=== PATIENT | female | born 1980 | race Caucasian/White ===

== ENCOUNTER 2016-05-22 23:15 | Inpatient (IN) | payer OTHER ==
[~2016-05-22] VITALS: Ht 165.1 cm; Wt 98.0 kg
[~2016-05-22 23:15] MED LIST: ALBUTEROL0.09 MG/A3 IH; FLEXERIL10 MG PO; NORCO 10/325 MG1 TAB PO; NORCO 5/325 MG1 TAB PO; PRILOSEC40 MG PO; REGLAN10 MG PO; ULTRAM50 MG PO; ZOFRAN4 M1 PO
[2016-05-22 23:26] VITALS: BP 107/67
--- NOTE | 2016-05-23 00:19 | NUR ---
PT TAKEN TO BED 1
--- NOTE | 2016-05-23 00:53 | NUR ---
Dr. Rene evaluating patient at bedside.
[2016-05-23] MEDS ORDERED: KETOROLAC 30 MG/ML VIAL IM ONE (01:00)
[2016-05-23] MEDS ORDERED: HYDROcodone/APAP 5/325 MG 1 TAB TAB PO ONE (01:00)
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
[2016-05-23] MEDS ORDERED: ENOXAPARIN 100 MG/ML SYR SUBQ ONE (03:45)
[2016-05-23] MEDS ORDERED: ONDANSETRON 4 MG/2 ML VIAL IVP PRN (04:00)
[2016-05-23] MEDS ORDERED: ACETAMINOPHEN 325 MG TAB PO PRN (04:00)
[2016-05-23] MEDS ORDERED: MORPHINE SULFATE 4 MG/ML SYR IVP PRN (04:00)
[2016-05-23] MEDS ORDERED: MORPHINE SULFATE 2 MG/ML SYR IVP PRN (04:00)
--- NOTE | 2016-05-23 05:42 | NUR ---
Patient will be admitted to care of DR BRYSON. Admited to TELEMETRY. Will go to room 105B. Belongings list completed. Report to KASSIDY DAHL.
[2016-05-23 06:05] VITALS: BP 102/60
--- NOTE | 2016-05-23 06:15 | NUR ---
ADMITTED 35 Y/O FEMALE TO MED/SURG FROM ER AT 0600 AM VIA WHEELCHAIR WITH DX: DVT. PATIENT AAO X 4, ABLE TO FOLLOW COMMAND AND MAKE NEEDS KNOWN AND AMBULATORY BY SELF WITH STEADY GAIT. NO S/S OF DISTRESS OR SOB NOTED UPON ADMISSION. SKIN WARM DRY TO TOUCH WITH NORMAL COLOR AND INTACT. NOTED LT ARM DELTOID WITH TENDERNESS AND BUMP, BUT WITHOUT REDNESS. TOLD PATIENT TO AVOID MASSAGE THE AREA. INSTRUCTED PATIENT TO UNIT/ENVIRONMENT. ALSO, DISCUSSED PLAN OF CARE, PAIN MANAGEMENT AND MEDICATION REGIMEN WITH PATIENT AND PATIENT VERBALIZED UNDERSTANDING. PLACED PATIENT ON SAFETY PRECAUTIONS AND WILL CONTINUE TO MONITOR. CALL LIGHT LEFT WITHIN REACH.
--- NOTE | 2016-05-23 07:15 | NUR ---
ENDORSED PLAN OF CARE TO NABILA RUEDA, AT BEDSIDE. PATIENT REMAINED IN STABLE CONDITION WITHOUT APPARENT DISTRESS NOTED.
--- NOTE | 2016-05-23 07:30 | NUR ---
RECEIVED REPORT FROM THE TRAFFIC SUPERVISOR NURSE LUIS AT BEDSIDE FOR CONTINUITY OF CARE. PATIENT IS AWAKE, ALERT, AND ORIENTEDX4. IV ON THE RIGHT HAND INTACT AND PATENT. INITIAL ASSESSMENT DONE. TENDERNESS AND SWELLING NOTED ON THE LEFT UPPER ARM OTHER MILLER SKIN INTACT. ON ROOM AIR NO S/S OF SOB OR OTHER DISTRESS. VITAL TAKEN AND WITHIN THE NORMAL LIMIT. SAFETY CHECKED DONE AND WILL CONTINUE TO MONITOR. CALL LIGHT WITHIN REACH.
[2016-05-23 08:00] VITALS: BP 105/65
--- NOTE | 2016-05-23 08:30 | NUR ---
PATIENT HAS BEEN SCREENED AND CATEGORIZED MODERATE NUTRITION RISK. PATIENT WILL BE SEEN WITHIN 3-5 DAYS OF ADMISSION. 05/25/16-05/27/[address]
[2016-05-23] MEDS ORDERED: WARFARIN 5 MG TAB PO SCH (09:00)
--- NOTE | 2016-05-23 09:00 | NUR ---
IV FLUID STARTED INFUSING. DUE MED GIVE. PATIENT TOLERATED WELL.
[2016-05-23] MEDS: NACL 0.9% 1,000 ML IV SCH ×3 (09:28→23:58)
[2016-05-23] MEDS: APIXABAN 2.5 MG TAB PO SCH ×2 (09:31→20:47)
--- NOTE | 2016-05-23 10:00 | NUR ---
PATIENT IS SLEEPING IN BED, NO S/S OF DISTRESS. CALL LIGHT WITHIN REACH.
--- NOTE | 2016-05-23 10:33 | NUR ---
CM NOTE INITIAL REVIEW FAXED TO [facility] (FAX# [phone]) & [facility] (FAX# [phone], C: [phone]) Addendum: 05/23/16 at 1245 by Enzo De La Cruz RN ATTN: [id number] [id number]
--- NOTE | 2016-05-23 12:00 | NUR ---
PATIENT IS AWAKE, NO COMPLAINED OF ANY PAIN. WILL CONTINUE TO MONITOR.
--- NOTE | 2016-05-23 13:00 | NUR ---
PATIENT EATING LUNCH. NO COMPLAINED OF PAIN OR S/S OF DISTRESS. CALL LIGHT WITHIN REACH.
[2016-05-23 16:00] VITALS: BP 113/63
--- NOTE | 2016-05-23 16:44 | NUR ---
VITALS TAKEN AND WITHIN THE NORMAL LIMIT. COMPLAINED OF PAIN ON THE LEFT UPPER ARM. MEDICATION WILL BE PROVIDED. WILL CONTINUE TO MONITOR. CALL LIGHT WITHIN REACH.
--- NOTE | 2016-05-23 18:23 | NUR ---
PATIENT EATING DINNER. STATE PAIN MEDICATION HELP REDUCED THE PAIN ON HER LEFT ARM. WILL CONTINUE TO MONITOR. CALL LIGHT WITHIN REACH.
--- NOTE | 2016-05-23 19:15 | NUR ---
RECEIVED REPORT FROM NABILA VALLE. INITIAL ASSESSMENT COMPLETED. PT AAOX4. PT HAS IV TO RIGHT HAND 22G; ASYMPTOMATIC, PATENT AND INTACT. PT HAS LEFT ARM TENDERNESS AND SWELLING. PT HAS A BRUISE ON RIGHT SIDE OF ABDOMEN DUE TO LOVENOX SHOT. EXPLAINED PLAN OF CARE TO PT AND ORIENTED HER TO ROOM AND SURROUNDINGS. FAMILY AT BEDSIDE. SAFETY MEASURES IN PLACE, WILL CONTINUE TO MONITOR PT.
--- NOTE | 2016-05-23 19:30 | NUR ---
REPORT GIVEN TO TRACK SUBWAY REPAIR SUPERVISOR NURSE KAJAL AT BEDSIDE FOR CONTINUITY OF CARE. PATIENT ON STABLE CONDITION AND ALL NEEDS ARE MET AT THIS TIME.
--- NOTE | 2016-05-23 20:50 | NUR ---
PT TLERATED 2100 MED WELL, CALL LIGHT WITHIN REACH.
--- NOTE | 2016-05-23 23:15 | NUR ---
PT WATCHING TV, DENIES PAIN. WILL CONTINUE TO MONITOR PT.
[2016-05-24] VITALS: BP 115/68
--- NOTE | 2016-05-24 00:24 | NUR ---
CHECKED PT'S VS. VS STABLE, PT DENIES PAIN AT THIS TIME. WILL CONTINUE TO MONITOR PT.
--- NOTE | 2016-05-24 02:22 | NUR ---
PT SLEEPING AT THIS TIME, NO SIGNS OF DISTRESS NOTED. WILL CONTINUE TO MONITOR PT.
[2016-05-24] MEDS: NACL 0.9% 1,000 ML IV SCH (04:36)
--- NOTE | 2016-05-24 04:39 | NUR ---
PT SLEEPING AT THIS TIME. NO SIGNS OF DISCOMFORT/DISTRESS NOTED. WILL CONTINUE TO MONITOR PT.
--- NOTE | 2016-05-24 05:09 | NUR ---
MACHINE FARMWORKER AT BEDSIDE, DRAWING MORNING LABS. CALL LIGHT WITHIN REACH.
--- NOTE | 2016-05-24 07:10 | NUR ---
ENDORSED PT IN STABLE CONDITION TO NABILA FARAH FOR CONTINUITY OF CARE.
--- NOTE | 2016-05-24 07:20 | NUR ---
RECEIVED REPORT FROM THE PLASTER BLOCK LAYER NURSE KAJAL AT BEDSIDE FOR CONTINUITY OF CARE. PATIENT IS AWAKE, ALERT, AND ORIENTEDX4. IV ON THE RIGHT HAND INTACT AND PATENT. INITIAL ASSESSMENT DONE. TENDERNESS AND SWELLING NOTED ON THE LEFT UPPER ARM OTHER MILLER SKIN INTACT. ON ROOM AIR NO S/S OF SOB OR OTHER DISTRESS. VITAL TAKEN AND WITHIN THE NORMAL LIMIT. SAFETY CHECKED DONE AND WILL CONTINUE TO MONITOR. CALL LIGHT WITHIN REACH.
[2016-05-24] MEDS ORDERED: ELIQUIS2.5 MG PO (07:45)
[2016-05-24 07:53] VITALS: BP 112/73
[2016-05-24] MEDS: APIXABAN 2.5 MG TAB PO SCH (08:40)
--- NOTE | 2016-05-24 09:00 | NUR ---
DUE MEDS GIVE, PATIENT TOLERATED WELL. NO COMPLAINED OF PAIN OR DISTRESS. WILL CONTINUE TO MONITOR. CALL LIGHT WITHIN REACH.
[2016-05-24] MEDS ORDERED: CLINICAL MONITORING MC PRN (10:10)
[2016-05-24 10:41] VITALS: BP 112/73
--- NOTE | 2016-05-24 10:45 | NUR ---
FAXED CONCURRENT REVIEW TO [facility] [phone] PHONE September FAXED CONCURRENT REVIEW TO [facility] [phone] PHONE [phone] FAXED THE SIGNED PRESCRIPTION DRUG PRIOR AUTHORIZATION REQUEST FORM TO [facility]. FAX [phone]. I CALLED THE [facility] AND SPOKE WITH EDWARD. I TOLD HER THE PATIENT HAD THROMBOSIS OF THE CEPHALIC VEIN. SHE SAID FOR THAT DIAGNOSIS, NO PRIOR AUTHORIZATION NEEDED. PHONE [phone] I DID FAXED TO [facility]M .
--- NOTE | 2016-05-24 11:30 | NUR ---
EDUCATION GIVEN TO PATIENT ABOUT DISCHARGED INSTRUCTION, FOLLOW UP APPOINTMENT, AND PRESCRIPTIONS. PATIENT VERBALIZED UNDERSTANDING. PATIENT SIGNED ALL DISCHARGED PAPERS AND GIVEN A COPY. REMOVED IV AND END INTACT. PATIENT REFUSED PNEUMONIA VACCINE. PATIENT STATED ALREADY RECEIVED FLU VACCINE AT 2016. PATIENT WILL BE DISCHARGED TO HOME WITH FAMILY IN STABLE CONDITION.
--- NOTE | 2016-05-24 12:20 | NUR ---
ASSISTED PATIENT TO THE LOBBY WITH FAMILY IN STABLE CONDITION. DISCHARGED TO HOME.
== END 2016-05-24 12:20 | disposition home or self-care (01) | DRG 197 ==
LOC: MED 23:15 → MTU 05-23 04:04
PROVIDERS: ADMIT Hospitalist; ATTEND Hospitalist
DX: I82.612 Acute embolism and thrombosis of superficial veins of left upper extremity (principal); K74.60 Unspecified cirrhosis of liver; F17.210 Nicotine dependence, cigarettes, uncomplicated; J45.909 Unspecified asthma, uncomplicated; K21.9 Gastro-esophageal reflux disease without esophagitis; B19.20 Unspecified viral hepatitis C without hepatic coma; Z90.49 Acquired absence of other specified parts of digestive tract; Z98.890 Other specified postprocedural states; Z90.710 Acquired absence of both cervix and uterus

== ENCOUNTER 2016-07-14 19:53 | Emergency (ER) | payer OTHER ==
[~2016-07-14] VITALS: Ht 165.1 cm; Wt 99.8 kg
[~2016-07-14 19:53] MED LIST changes: +ELIQUIS2.5 MG PO
[2016-07-14 20:09] VITALS: BP 114/65
--- NOTE | 2016-07-14 20:34 | NUR ---
Patient to OF.
--- NOTE | 2016-07-14 20:48 | NUR ---
LEFT ARM PAIN, SWELLING, WARMTH TO TOUCH, STARTED TODAY . A MONTH AGO DX OF BLOOD CLOT ON HER LEFT ARM. PAIN SCALE 8/10. ERMD MADE AWARE.
--- NOTE | 2016-07-14 20:49 | NUR ---
Dr. Cook evaluating patient.
[2016-07-14 21:43] VITALS: BP 123/70
--- NOTE | 2016-07-14 21:43 | NUR ---
Patient discharged with v/s stable. Written and verbal after care instructions given and explained. Patient alert, oriented and verbalized understanding of instructions. Ambulatory with steady gait. All questions addressed prior to discharge. ID band removed. Patient advised to follow up with PMD. Rx of KEFLEX 500MG CAPSULE 1 CAP 3 TIMES A DAY BY MOUTH X 10 DAYS given. Patient educated on indication of medication including possible reaction and side effects. Opportunity to ask questions provided and answered.
== END 2016-07-14 21:43 | disposition home or self-care (01) ==
LOC: MED 19:53
DX: L03.114 Cellulitis of left upper limb (principal); J45.909 Unspecified asthma, uncomplicated; K21.9 Gastro-esophageal reflux disease without esophagitis; Z90.710 Acquired absence of both cervix and uterus; Z90.89 Acquired absence of other organs; Z79.899 Other long term (current) drug therapy

== ENCOUNTER 2017-10-06 16:28 | Emergency (ER) | payer OTHER ==
[~2017-10-06] VITALS: Ht 165.1 cm; Wt 93.9 kg
[~2017-10-06 16:28] MED LIST changes: +ACET-787 PO; +ALBU0.0967 IH; -ALBUTEROL0.09 MG/A3 IH; +APIX2.5 PO; +CYCL-405 PO; -ELIQUIS2.5 MG PO; -FLEXERIL10 MG PO; +METO-460 PO; -NORCO 10/325 MG1 TAB PO; -NORCO 5/325 MG1 TAB PO; +OMEP40EC1 PO; +ONDA4TAB PO; -PRILOSEC40 MG PO; -REGLAN10 MG PO; +TRAM50TA1 PO; -ULTRAM50 MG PO; -ZOFRAN4 M1 PO
[2017-10-06 16:58] VITALS: BP 108/67
--- NOTE | 2017-10-06 17:03 | NUR ---
patient to lobby with steady gait awaiting available room. patient to provided urine sample for ua.
--- NOTE | 2017-10-06 17:36 | NUR ---
PT AMBULATES TO BED 4
--- NOTE | 2017-10-06 17:50 | NUR ---
37 yo f bib self with c/o right upper/mid abdomen radiating to right flank x 2 weeks with diarrhea. Patient denies any n/v, fevers, or urinary complaints. pt aaox4. gcs 15. cms intact. rr even and unlabored. lungs clear. abd soft, non-tender. er md nolasco notified. pt needs met. safety precautions in place. will continue to monitor.
[2017-10-06] MEDS ORDERED: KETOROLAC 60 MG/2 ML VIAL IM ONE (18:05)
[2017-10-06] MEDS ORDERED: cefTRIAXone 1,000 MG in LIDOCAINE 1% ***ER ONLY *** 2.1 ML IM ONE (18:05)
[2017-10-06] MEDS ORDERED: MORPHINE SULFATE 2 MG/ML SYR IM ONE (18:05)
[2017-10-06] MEDS ORDERED: cefTRIAXone 1,000 MG VIAL ONE (18:19)
[2017-10-06] MEDS ORDERED: LIDOCAINE MPF 1% - **ER/OR** 5 ML ONE (18:20)
--- NOTE | 2017-10-06 18:49 | NUR ---
[facility] resting [facility] at[facility] w/stable vital signs. safety precautions in place. rr even and unlabored. will continue to monitor.
[2017-10-06 19:15] VITALS: BP 115/81
--- NOTE | 2017-10-06 19:15 | NUR ---
Patient discharged with v/s stable. Written and verbal after care instructions given and explained. Patient alert, oriented and verbalized understanding of instructions. Ambulatory with steady gait. All questions addressed prior to discharge. ID band removed. Patient advised to follow up with PMD. Rx of TORADOL AND LEVAQUIN given. Patient educated on indication of medication including possible reaction and side effects. Opportunity to ask questions provided and answered.
[2017-10-06 19:26] LABS: APPEARANCE,URINE YELLOW (CLEAR)
[2017-10-06 19:27] LABS: BILIRUBIN,URINE NEGATIVE (NEGATIVE); BLOOD, URINE NEGATIVE (NEGATIVE); COLOR,URINE CLEAR (YELLOW); LEUKOCYTE ESTERASE ,URINE NEGATIVE (NEGATIVE); NITRITE, URINE NEGATIVE (NEGATIVE); PH,URINE 5.5 (5.0-9.0); UGLUCOSE NEGATIVE (NEGATIVE)
[2017-10-06 19:37] LABS: BARBITURATE, URINE NEGATIVE ng/ml (NEG <=200); BENZODIAZEPINE, URINE NEGATIVE ng/mL (NEG <=200); CANNABINOID, URINE NEGATIVE ng/mL (NEG <=50); COCAINE, URINE NEGATIVE ng/mL (NEG <=300); OPIATE, URINE NEGATIVE ng/mL (NEG <=2000); PHENCYCLIDINE SCREEN,URINE NEGATIVE ng/mL (NEG <=25)
== END 2017-10-06 19:15 | disposition home or self-care (01) ==
LOC: MED 16:28
DX: G89.29 Other chronic pain (principal); R10.9 Unspecified abdominal pain; M54.9 Dorsalgia, unspecified
CPT/HCPCS: 80305; 81003; 81025; 96372; 99284; J0696; J1885; J2001; J2270; 96374

== ENCOUNTER 2017-10-24 17:30 | Emergency (ER) | payer MEDICAID, OTHER ==
[~2017-10-24] VITALS: Ht 160 cm; Wt 95.3 kg
[2017-10-24 17:40] VITALS: BP 97/65
--- NOTE | 2017-10-24 17:40 | NUR ---
PT BEDSIDE TRIAGED IN ER BED 9. AMBULATED TO BED, REPORT GIVEN TO AMISH DAHL
--- NOTE | 2017-10-24 18:21 | NUR ---
PATIENT PRESENTS TO ED WITH PAIN TO LEFT BICEP X 1 WK--- PER PT SHE FEELS SWELLING TO AREA---NO OBVIOUS EDEMA NOTED OR DISCOLORATION AT THIS TIME PT CONCERNED OF POSSIBLE DVT HISTORY OF .+2 RADIAL PULSE <3 SEC CAP REFILL DENIES N/V/D; SKIN IS PINK/WARM/DRY; AAOX4 WITH EVEN AND STEADY GAIT; LUNGS CLEAR BL; HR EVEN AND REGULAR; PT DENIES ANY FEVER, CP, SOB, OR COUGH AT THIS TIME; PATIENT STATES PAIN OF 6/10 AT THIS TIME; VSS; PATIENT POSITIONED FOR COMFORT; HOB ELEVATED; BEDRAILS UP X2; BED DOWN. ER MD MADE AWARE OF PT STATUS.
--- NOTE | 2017-10-24 18:38 | NUR ---
ULTRASOUND AT BEDSIDE
[2017-10-24 18:39] LABS: BASOPHILS % (AUTO) 0.2 % (0.0-2.0); EOSINOPHILS # (AUTO) 0.3 K/uL (0-0.4); EOSINOPHILS % (AUTO) 4.1 % (0.0-4.0); HEMATOCRIT 43.2 % (36-48); HEMOGLOBIN 14.1 g/dL (12.0-16.0); LYMPHOCYTES # (AUTO) 3.3 K/uL (2.5-16.5); LYMPHOCYTES % (AUTO) 46.2 % (20.5-51.1); MEAN CORPUSCULAR HEMOGLOBIN 30 pg (27-31); MEAN CORPUSCULAR HGB CONC 33 g/dL (33-37); MEAN CORPUSCULAR VOLUME 92.5 fL (80-94); MONOCYTES # (AUTO) 0.4 K/uL (0.8-1.0); MONOCYTES % (AUTO) 5.3 % (1.7-9.3); NEUTROPHILS # (AUTO) 3.2 K/uL (1.8-7.7); NEUTROPHILS % (AUTO) 44.2 % (42.2-75.2); PLATELET COUNT (AUTO) 148 K/uL (140-450); RED BLOOD CELL COUNT(AUTO) 4.67 MIL/uL (4.20-5.40); RED CELL DISTRIBUTION WIDTH 14.1 % (11.6-13.7); WHITE BLOOD COUNT (AUTO) 7.2 K/uL (4.8-10.8)
[2017-10-24 18:58] LABS: PROTHROMBIN TIME 10.2 secs (10.8-13.4)
[2017-10-24 19:01] LABS: ANION GAP 10.3 (8-16); CARBON DIOXIDE 28.6 mmol/L (21-32); POTASSIUM 3.9 mmol/L (3.5-5.1); TOTAL BILIRUBIN 0.2 mg/dL (0.0-1.0)
--- NOTE | 2017-10-24 19:05 | NUR ---
PT IN BED RESTING WITH EYES OPEN. STATES LEFT UPPER ARM REMAINS AT 6/10 AT THIS TIME. VSS. POSITIONED FOR COMFORT. CONTINUE TO MONITOR.
[2017-10-24 21:16] VITALS: BP 125/89
--- NOTE | 2017-10-24 21:19 | NUR ---
Patient discharged with v/s stable. Written and verbal after care instructions given and explained. Patient verbalized understanding. Ambulatory with steady gait. All questions addressed prior to discharge. Advised to follow up with PMD.
== END 2017-10-24 21:19 | disposition home or self-care (01) ==
LOC: MED 17:30
DX: M79.602 Pain in left arm (principal); M79.89 Other specified soft tissue disorders; K21.9 Gastro-esophageal reflux disease without esophagitis; J45.909 Unspecified asthma, uncomplicated; Z90.710 Acquired absence of both cervix and uterus; Z90.49 Acquired absence of other specified parts of digestive tract; F17.210 Nicotine dependence, cigarettes, uncomplicated; K70.30 Alcoholic cirrhosis of liver without ascites
CPT/HCPCS: 36415; 71045; 80053; 81002; 81025; 84484; 85025; 85379; 85610; 85730; 93005; 93971; 99285; Q0092

== ENCOUNTER 2018-02-09 17:32 | Emergency (ER) | payer SELFPAY | END 2018-02-09 17:56 | disposition left against medical advice (07) | LOC: MED 17:32 | DX: J45.909 Unspecified asthma, uncomplicated (principal); K21.9 Gastro-esophageal reflux disease without esophagitis; Z79.899 Other long term (current) drug therapy; Z53.21 Procedure and treatment not carried out due to patient leaving prior to being seen by health care provider ==

== ENCOUNTER 2018-02-11 14:53 | Emergency (ER) | payer MEDICAID ==
[~2018-02-11] VITALS: Ht 165.1 cm; Wt 105.2 kg
[2018-02-11 15:05] VITALS: BP 100/58
--- NOTE | 2018-02-11 15:12 | NUR ---
PT AMBULATED TO LOBBY. VSS.
--- NOTE | 2018-02-11 15:30 | NUR ---
PATIENT PRESENTS TO ED WITH THE CHIEF C/O BACK PAIN THAT RADIATES TO LEFT LEG. PT STATES PAIN STARTED 3 DAYS AGO. HAS LUMP ON HER LEFT LOWER LEG, TENDERNESS PRESENT. DENIES N/V/D; SKIN IS PINK/WARM/DRY; AAOX4 WITH EVEN AND STEADY GAIT; LUNGS CLEAR BL; HR EVEN AND REGULAR; PT DENIES ANY FEVER, CP, SOB, OR COUGH AT THIS TIME; PATIENT STATES PAIN AT LEFT LEG OF 8/10 AT THIS TIME; VSS; PATIENT POSITIONED FOR COMFORT; HOB ELEVATED; BEDRAILS UP X2; BED DOWN. ER MD MADE AWARE OF PT STATUS.
--- NOTE | 2018-02-11 15:51 | NUR ---
PATIENT AMBULATED TO ER BED 7.
--- NOTE | 2018-02-11 17:55 | NUR ---
RESTING IN BED COMFORTABLY. NO ACUTE RESP DISTRESS NOTED. NO CHANGE IN LOC. WILL CONTINUE TO MONITOR.
[2018-02-11] MEDS ORDERED: KETOROLAC 60 MG/2 ML VIAL IM ONE (18:25)
--- NOTE | 2018-02-11 19:18 | NUR ---
Patient discharged with v/s stable. Written and verbal after care instructions given and explained. Patient alert, oriented and verbalized understanding of instructions. Ambulatory with steady gait. All questions addressed prior to discharge. ID band removed. Patient advised to follow up with PMD. Rx of MOTRIN AND NORCO given. Patient educated on indication of medication including possible reaction and side effects. Opportunity to ask questions provided and answered.
[2018-02-11 19:19] VITALS: BP 110/58
== END 2018-02-11 19:19 | disposition home or self-care (01) ==
LOC: MED 14:53
DX: M79.605 Pain in left leg (principal); F17.200 Nicotine dependence, unspecified, uncomplicated; Z87.442 Personal history of urinary calculi; Z90.49 Acquired absence of other specified parts of digestive tract; Z90.710 Acquired absence of both cervix and uterus; Z79.899 Other long term (current) drug therapy
CPT/HCPCS: 81002; 81025; 93971; 96372; 99284; J1885; Q0092

== ENCOUNTER 2018-05-27 04:55 | Emergency (ER) | payer MEDICAID ==
[~2018-05-27] VITALS: Ht 167.6 cm; Wt 98.5 kg
[2018-05-27 04:55] VITALS: BP 128/72
--- NOTE | 2018-05-27 05:02 | NUR ---
PT TAKEN TO BED 3
--- NOTE | 2018-05-27 05:05 | NUR ---
FLU SWAB COLLECTED AND SENT DOWN TO LAB BY CEE MERCEDES.
[2018-05-27] MEDS ORDERED: PROMETH/CODEINE 6.25-10MG/5ML 5 ML UDC PO ONE (05:20)
--- NOTE | 2018-05-27 06:17 | NUR ---
Patient discharged with v/s stable. Written and verbal after care instructions given and explained. Patient alert, oriented and verbalized understanding of instructions. Ambulatory with steady gait. All questions addressed prior to discharge. ID band removed. Patient advised to follow up with PMD. Rx of Promethazine, and Motrin given. Patient educated on indication of medication including possible reaction and side effects. Opportunity to ask questions provided and answered.
[2018-05-27 06:32] VITALS: BP 109/67
== END 2018-05-27 06:17 | disposition home or self-care (01) ==
LOC: MED 04:55
DX: J06.9 Acute upper respiratory infection, unspecified (principal)
CPT/HCPCS: 36415; 87804; 99283

== ENCOUNTER 2022-06-01 20:30 | Emergency (ER) | payer SELFPAY ==
[~2022-06-01] VITALS: Ht 165.1 cm; Wt 104.8 kg
[~2022-06-01 20:30] MED LIST changes: -ACET-787 PO; -CYCL-405 PO; +CYCL-711 PO; +HYDR-5191 PO; -OMEP40EC1 PO; +OMEP40EC24 PO; +TRAM-748 PO; -TRAM50TA1 PO
[2022-06-01 21:01] VITALS: BP 103/68
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
[2022-06-01] MEDS ORDERED: NACL 0.9% 1,000 ML IV ONE (22:25)
[2022-06-01 22:44] LABS: APPEARANCE,URINE CLEAR (CLEAR); BILIRUBIN,URINE NEGATIVE (NEGATIVE); BLOOD, URINE NEGATIVE (NEGATIVE); COLOR,URINE YELLOW (YELLOW); LEUKOCYTE ESTERASE ,URINE NEGATIVE (NEGATIVE); NITRITE, URINE NEGATIVE (NEGATIVE); PH,URINE 5.5 (5.0-9.0); UGLUCOSE NEGATIVE (NEGATIVE)
--- NOTE | 2022-06-01 22:51 | NUR ---
Phlebotomy at bedside to blood draw
[2022-06-01 22:59] LABS: BASOPHILS % (AUTO) 0.4 % (0.0-2.0); EOSINOPHILS # (AUTO) 0.4 K/uL (0-0.4); EOSINOPHILS % (AUTO) 4.1 % (0.0-4.0); HEMATOCRIT 41.8 % (36-48); HEMOGLOBIN 13.9 g/dL (12.0-16.0); LYMPHOCYTES # (AUTO) 3.4 K/uL (2.5-16.5); LYMPHOCYTES % (AUTO) 38.6 % (20.5-51.1); MEAN CORPUSCULAR HEMOGLOBIN 30 pg (27-31); MEAN CORPUSCULAR HGB CONC 33 g/dL (33-37); MEAN CORPUSCULAR VOLUME 90.1 fL (80-94); MONOCYTES # (AUTO) 0.7 K/uL (0.8-1.0); MONOCYTES % (AUTO) 7.8 % (1.7-9.3); NEUTROPHILS # (AUTO) 4.4 K/uL (1.8-7.7); NEUTROPHILS % (AUTO) 49.1 % (42.2-75.2); PLATELET COUNT (AUTO) 179 K/uL (140-450); RED BLOOD CELL COUNT(AUTO) 4.64 MIL/uL (4.20-5.40); RED CELL DISTRIBUTION WIDTH 13.9 % (11.6-13.7); WHITE BLOOD COUNT (AUTO) 8.9 K/uL (4.8-10.8)
[2022-06-01 23:26] LABS: ALBUMIN 3.8 g/dL (3.4-5.0); ANION GAP 11.9 (8-16); CARBON DIOXIDE 25.8 mmol/L (21-32); CREATININE 0.9 mg/dL (0.6-1.3); POTASSIUM 3.7 mmol/L (3.5-5.1); TOTAL BILIRUBIN 0.3 mg/dL (0.0-1.0)
--- NOTE | 2022-06-02 00:22 | NUR ---
Resting at this time. VS stable. No distress
[2022-06-02] MEDS ORDERED: NAPR-54 PO (01:13)
[2022-06-02 01:50] VITALS: BP 91/49
--- NOTE | 2022-06-02 01:50 | NUR ---
Cleared to discharge home. Instructions given. Instructed to follow up c PMD. Ambulated out of ED c steady gait. No distress.
== END 2022-06-02 01:50 | disposition home or self-care (01) ==
LOC: MED 20:30
DX: S33.5XXA Sprain of ligaments of lumbar spine, initial encounter (principal); S06.0X0A Concussion without loss of consciousness, initial encounter; M79.662 Pain in left lower leg; K74.60 Unspecified cirrhosis of liver; Z79.899 Other long term (current) drug therapy; V49.88XA Car occupant (driver) (passenger) injured in other specified transport accidents, initial encounter; Y93.89 Activity, other specified; Y92.89 Other specified places as the place of occurrence of the external cause; Y99.8 Other external cause status
CPT/HCPCS: 36415; 70450; 71045; 72100; 80053; 81003; 82140; 83605; 85025; 87040; 87086; 93005; 99285; Q0092